=== PATIENT | male | born 1965 | race Caucasian/White ===

== ENCOUNTER 2018-11-23 07:32 | Emergency (ER) | payer BC ==
--- OUTSIDE RECORDS SUMMARY | 2018-11-23 07:39 | XMS REPORT | Continuity of Care Document ---
:1965 External Reference #:[id number] Author Name Freya Cha Care Team Providers Name Role Phone Glory Veloz MD Primary Care Physician Unavailable Payers Date Identification Numbers Payment Provider Subscriber Policy Number: [id number] [facility] Ppo Nicolas Valentin Group Number: [id number] 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 Tobacco Use Start: Unknown Never Smoked Cigarettes Smoking Status Reviewed: 11/05/18 Never Smoked Cigarettes ETOH Use Occasionally consumes 2 glasses wine per alcohol week Tobacco Use Start: Unknown Patient has never smoked Recreational Drug Use Denies Drug Use Exercise Type/Frequency Exercises regularly Allergies, Adverse Reactions, Alerts Date Description Reaction Status Severity Comments 10/10/2010 Penicillins Urticaria Active Moderate Medications Medication Date Status Form Strength Qnty SIG Indications Ordering Provider Zyrtec / Active Tablets 10mg 30tabs 1 tab qd Unknown 0000 Dispers Sertraline HCL / Active Tablets 50mg 90tabs Take 1 Glory 0000 Tablet Cammy Veloz M.D. Tobramycin 03/11/ Hx Solution 0.3% 5ml 1 drop in H10.89 Azalea 2016 - each eye Varn, N.P. 08/02/ every 2016 4hours x 7 days Azithromycin 01/27/ Hx Tablets 250mg 6tabs 2 tabs by J06.9 Page 2016 - mouth Lizet, POT RUNNER 02/01/ every day 2016 x1 day, 1 tab by mouth every day x 4 days Advair HFA 01/27/ Hx Aerosol 115-21mcg/ 8gm 2 puffs J06.9 Page 2016 - Act twice Lizet, POT RUNNER 02/10/ daily for 2015 two week. Androgel 12/06/ Hx Gel 20.25mg/1. 37.500 apply1.25 257.2 Yaima 2013 - 25GM gm gm to area Sarah, 02/23/ (1.62%) sparingly M.D., FACP 2013 every day Ferrex 150 02/04/ Hx Capsules 50-100mg 180cap Take 1 D64.9 [facility] Forte Plus 2010 - s Capsule Cotton, 03/11/ Once A Day M.D. 2016 Requip 01/28/ Hx Tablets 0.25mg 60tabs 1 tablet 780.52 Yaima 2010 - at night Sarah, 08/31/ for a M.D., FACP 2012 week, then take 2 tablets at bedtime. Temazepam 10/10/ Hx Capsules 15mg 20caps 1 capsule Yaima 2010 - every Sarah, 12/06/ night as M.D., FACP 2013 needed for sleep Zolpidem / Hx Tablets 10mg 20tabs 1 tablet Yaima Tartrate 0000 - at bedtime Sarah, 12/06/ as needed M.D., FACP 2013 Immunizations CPT Code Status Date Vaccine Lot # [id number] Given 08/03/2017 Influenza Virus Vaccine, Quadrivalent, Split, [id number] Preservative Free 98078 Given 07/31/2016 Influ Virus Vaccine, Quadrivalent, Split Virus, [place] [id number] [address] Given 07/26/2015 Tdap - Tetanus/Diptheria/Acellular Pertussis [id number] 77836 Given 07/26/2015 Influenza Virus Vaccine, Quadrivalent, Split, [id number] Preservative Free 55774 Given 10/10/2010 Influenza Virus 3Yrs & Over 02502 Given 11/28/2009 Influenza Virus Vaccine, Pandemic Formulation 22156 Given 11/28/2009 Administration Swine Flu Shot Vital Signs Date Vital Result Comment 11/05/2018 9:08am Height 75.5 inches 6'3.50" Weight 276.00 lb Heart Rate 76 /min BP Systolic Sitting 134 mmHg BP Diastolic Sitting 90 mmHg Respiratory Rate 18 /min O2 % BldC Oximetry 97 % on Ra BMI (Body Mass Index) 34.0 kg/m2 Neck Circumference in inches 16.75 08/09/2018 9:22am Height 75.5 inches 6'3.50" Weight 272.00 lb Heart Rate 80 /min BP Systolic Sitting 122 mmHg BP Diastolic Sitting 75 mmHg Body Temperature 96.9 F O2 % BldC Oximetry 97 % BMI (Body Mass Index) 33.5 kg/m2 08/03/2017 9:09am Height 75.75 inches 6'3.75" Weight 266.00 lb Heart Rate 64 /min BP Systolic 138 mmHg BP Diastolic 70 mmHg Body Temperature 96.7 F O2 % BldC Oximetry 95 % BMI (Body Mass Index) 32.6 kg/m2 03/11/2017 2:13pm Weight 265.50 lb Heart Rate 73 /min BP Systolic 130 mmHg BP Diastolic 78 mmHg Body Temperature 97.7 F O2 % BldC Oximetry 98 % 07/31/2016 10:35am Height 75 inches 6'3" Weight 270.00 lb Heart Rate 62 /min BP Systolic Sitting 128 mmHg BP Diastolic Sitting 78 mmHg Respiratory Rate 15 /min Body Temperature 97.3 F O2 % BldC Oximetry 98 % BMI (Body Mass Index) 33.7 kg/m2 01/28/2016 2:38pm Heart Rate 81 /min BP Systolic Sitting 129 mmHg BP Diastolic Sitting 88 mmHg Body Temperature 97.2 F O2 % BldC Oximetry 98 % 07/26/2015 10:15am Height 76.5 inches 6'4.50" Weight 266.00 lb Heart Rate 52 /min BP Systolic Sitting 122 mmHg BP Diastolic Sitting 80 mmHg Respiratory Rate 14 /min Body Temperature 98.0 F O2 % BldC Oximetry 98 % BMI (Body Mass Index) 32.0 kg/m2 01/16/2015 11:43am Weight 262.50 lb Heart Rate 68 /min BP Systolic Sitting 120 mmHg BP Diastolic Sitting 68 mmHg Body Temperature 95.9 F O2 % BldC Oximetry 95 % 02/23/2014 9:40am Weight 261.00 lb Heart Rate 60 /min BP Systolic Sitting 110 mmHg BP Diastolic Sitting 70 mmHg 12/06/2013 2:35pm Height 63.75 inches 5'3.75" Weight 255.25 lb Heart Rate 56 /min BP Systolic Sitting 108 mmHg BP Diastolic Sitting 64 mmHg Body Temperature 97.3 F BMI (Body Mass Index) 44.2 kg/m2 08/31/2013 2:04pm Weight 262.75 lb Heart Rate 72 /min BP Systolic Sitting 124 mmHg BP Diastolic Sitting 70 mmHg 03/20/2011 10:21am Height 75 inches 6'3" Weight 245.00 lb Heart Rate 82 /min BP Systolic Sitting 124 mmHg BP Diastolic Sitting 72 mmHg BMI (Body Mass Index) 30.6 kg/m2 02/04/2011 8:56am Height 75 inches 6'3" Weight 240.00 lb Heart Rate 78 /min BP Systolic Sitting 126 mmHg BP Diastolic Sitting 70 mmHg BMI (Body Mass Index) 30.0 kg/m2 01/28/2011 1:28pm Weight 242.00 lb Heart Rate 64 /min BP Systolic 118 mmHg BP Diastolic 66 mmHg 10/10/2010 9:00am Weight 253.00 lb Heart Rate 62 /min BP Systolic 110 mmHg BP Diastolic 70 mmHg Results Test Date Facility Test Result H/L Range Note Iron & Iron Binding 07/30/2018 [facility] Iron 76 g/dL N 50- 212 [address] [place] [address] [phone] Unsaturated Iron Binding < 362 g/dL Total Iron Binding Capacity 377 g/dL N 250-450 Transferrin 269 mg/dL N 203-362 % Iron Saturation 20 % N 15-55 Lipid Profile 07/30/2018 [facility] Triglycerides 132 mg/dL 1 (Trig/Chol/HDL) [address] [place] [address] [phone] Cholesterol 200 mg/dL 2 HDL Cholesterol 41.6 mg/dL 3 LDL Cholesterol 132 mg/dL 4 CBC Auto Diff 07/30/2018 [facility] White Blood 5.0 10^3/uL N 3.5-10.[address] [place] [address] [phone] Red Blood Count 5.25 10^6/uL N 4.00-5.40 Hemoglobin 15.1 g/dL N 14.0-18.0 Hematocrit 43 % N 42-52 Mean Corpuscular Volume 82 fL N 80-94 Mean Corpuscular Hemoglobin 29 pg N 27-31 Mean Corpuscular HGB Conc 35 g/dL N 31-36 Red Cell Distribution Width 14 % N 10.5-15 Platelet Count 236 10^3/uL N 150-450 Mean Platelet Volume 8.8 um3 N 7.4-10.4 Abs Neutrophils 3.3 10^3/uL N 1.5-7.7 Abs Lymphocytes 1.1 10^3/uL N 1.0-4.8 Abs Monocytes 0.4 10^3/uL N 0-0.8 Abs Eosinophils 0.2 10^3/uL N 0-0.6 Abs Basophils 0.1 10^3/uL N 0-0.2 Abs Nucleated RBC 0 10^3/uL Granulocyte % 65.9 % N 38-83 Lymphocyte % 21.4 % Low 25-47 Monocyte % 8.2 % High 0-7 Eosinophil % 3.1 % N 0-6 Basophil % 1.4 % N 0-2 Nucleated Red Blood Cells % 0.1 Comp Metabolic Panel 07/30/2018 [facility] Sodium 141 mmol/L N 135-[address] [place] [address] [phone] Potassium 4.7 mmol/L N 3.5-5.0 Chloride 108 mmol/L N 101-111 Co2 Carbon Dioxide 27 mmol/L N 22-32 Anion Gap 6 mmol/L N 2-11 Glucose 106 mg/dL High 70-100 Blood Urea Nitrogen 19 mg/dL N 6-24 Creatinine 1.01 mg/dL N 0.67-1.17 BUN/Creatinine Ratio 18.8 N 8-20 Calcium 9.7 mg/dL N 8.6-10.3 Total Protein 6.8 g/dL N 6.4-8.9 Albumin 4.5 g/dL N 3.2-5.2 Globulin 2.3 g/dL N 2-4 Albumin/Globulin Ratio 2.0 N 1-3 Total Bilirubin 1.10 mg/dL High 0.2-1.0 Alkaline Phosphatase 88 U/L N 34-104 Alt 30 U/L N 7-52 Ast 21 U/L N 13-39 Egfr Non- 77.9 >60 Egfr 94.2 >60 5 Lipid Profile 07/28/2017 [facility] Triglycerides 143 mg/dL N 6 (Trig/Chol/HDL) [address] [place] [address] [phone] Cholesterol 193 mg/dL N 7 HDL Cholesterol 38.3 mg/dL N 8 LDL Cholesterol 126 mg/dL N 9 Comp Metabolic Panel 07/28/2017 [facility] Sodium 138 mmol/L N 133-[address] [place] [address] [phone] Potassium 3.9 mmol/L N 3.5-5.0 Chloride 105 mmol/L N 101-111 Co2 Carbon Dioxide 26 mmol/L N 22-32 Anion Gap 7 mmol/L N 2-11 Glucose 93 mg/dL N 70-100 Blood Urea Nitrogen 13 mg/dL N 6-24 Creatinine 0.91 mg/dL N 0.67-1.17 BUN/Creatinine Ratio 14.3 N 8-20 Calcium 9.4 mg/dL N 8.6-10.3 Total Protein 6.5 g/dL N 6.4-8.9 Albumin 4.1 g/dL N 3.2-5.2 Globulin 2.4 g/dL N 2-4 Albumin/Globulin Ratio 1.7 N 1-3 Total Bilirubin 1.60 mg/dL High 0.2-1.0 Alkaline Phosphatase 79 U/L N 34-104 Alt 26 U/L N 7-52 Ast 22 U/L N 13-39 Egfr Non- 88.2 N >60 Egfr 113.4 N >60 10 CBC Auto Diff 07/28/2017 [facility] White Blood 5.2 10^3/uL N 3.5-10.[address] [place] [address] [phone] Red Blood Count 5.16 10^6/uL N 4.0-5.4 Hemoglobin 14.9 g/dL N 14.0-18.0 Hematocrit 43 % N 42-52 Mean Corpuscular Volume 84 fL N 80-94 Mean Corpuscular Hemoglobin 29 pg N 27-31 Mean Corpuscular HGB Conc 35 g/dL N 31-36 Red Cell Distribution Width 13 % N 10.5-15 Platelet Count 226 10^3/uL N 150-450 Mean Platelet Volume 9 um3 N 7.4-10.4 Abs Neutrophils 3.4 10^3/uL N 1.5-7.7 Abs Lymphocytes 1.3 10^3/uL N 1.0-4.8 Abs Monocytes 0.4 10^3/uL N 0-0.8 Abs Eosinophils 0.1 10^3/uL N 0-0.6 Abs Basophils 0.1 10^3/uL N 0-0.2 Abs Nucleated RBC 0 10^3/uL N Granulocyte % 63.9 % N 38-83 Lymphocyte % 24.2 % Low 25-47 Monocyte % 7.7 % N 1-9 Eosinophil % 2.5 % N 0-6 Basophil % 1.7 % N 0-2 Nucleated Red Blood Cells % 0 N Laboratory test 07/28/2017 [facility] Ferritin 53.5 ng/mL N 24 -336 [address] [place] [address] [phone] Iron & Iron Binding 07/28/2017 [facility] Iron 111 g/dL N 50 -212 [address] [place] [address] [phone] Unsaturated Iron Binding 242 g/dL N Total Iron Binding Capacity 353 g/dL N 250-450 % Iron Saturation 31 % N 15-55 Iron & Iron Binding 07/04/2016 [facility] Iron 54 g/dL N 50- 212 [address] [place] [address] [phone] Unsaturated Iron Binding 317 g/dL N Total Iron Binding Capacity 371 g/dL N 250-450 % Iron Saturation 15 % N 15-55 Laboratory test 07/04/2016 [facility] Ferritin 36.6 ng/mL N 24 -336 11 [address] [place] [address] [phone] Lipid Profile 07/04/2016 [facility] Triglycerides 107 mg/dL N 12 (Trig/Chol/HDL) [address] [place] [address] [phone] Cholesterol 182 mg/dL N 13 HDL Cholesterol 37.4 mg/dL N 14 LDL Cholesterol 123 mg/dL N 15 Laboratory test 07/04/2016 [facility] Glucose 103 mg/dL High 70-100 16 [address] [place] [address] [phone] Lipid Profile 07/24/2015 [facility] Triglycerides 136 mg/dL N 17 (Trig/Chol/HDL) [address] [place] [address] [phone] Cholesterol 180 mg/dL N 18 HDL Cholesterol 35.2 mg/dL N 19 LDL Cholesterol 118 mg/dL N 20 Iron & Iron Binding 07/24/2015 [facility] Iron 76 g/dL N 50- 212 [address] [place] [address] [phone] Unsaturated Iron Binding 289 g/dL N Total Iron Binding Capacity 365 g/dL N 250-450 % Iron Saturation 21 % N 15-55 Laboratory test 07/24/2015 [facility] Ferritin 33.7 ng/mL N 24 -336 [address] [place] [address] [phone] CBC Auto Diff 07/24/2015 [facility] White Blood 5.1 10^3/uL N 4.8-10.8 [address] [facility] [place] [address] [phone] Red Blood Count 5.23 10^6/uL N 4.0-5.4 Hemoglobin 15.1 g/dL N 14.0-18.0 Hematocrit 44 % N 42-52 Mean Corpuscular Volume 85 fL N 80-94 Mean Corpuscular Hemoglobin 29 pg N 27-31 Mean Corpuscular HGB Conc 34 g/dL N 31-36 Red Cell Distribution Width 13 % N 10.5-15 Platelet Count 238 10^3/uL N 150-450 Mean Platelet Volume 9 um3 N 7.4-10.4 Abs Neutrophils 3.5 10^3/uL N 1.5-7.7 Abs Lymphocytes 1.1 10^3/uL N 1.0-4.8 Abs Monocytes 0.3 10^3/uL N 0-0.8 Abs Eosinophils 0.2 10^3/uL N 0-0.6 Abs Basophils 0.1 10^3/uL N 0-0.2 Abs Nucleated RBC 0.02 10^3/uL N Granulocyte % 67.6 % N 38-83 Lymphocyte % 21.9 % Low 25-47 Monocyte % 6.0 % N 1-9 Eosinophil % 3.1 % N 0-6 Basophil % 1.4 % N 0-2 Nucleated Red Blood Cells % 0.4 N Comp Metabolic Panel 07/24/2015 [facility] Sodium 138 mmol/L N 133-[address] [place] [address] [phone] Potassium 4.2 mmol/L N 3.5-5.0 Chloride 105 mmol/L N 101-111 Co2 Carbon Dioxide 27 mmol/L N 22-32 Anion Gap 6 mmol/L N 2-11 Glucose 102 mg/dL High 70-100 Blood Urea Nitrogen 19 mg/dL N 6-24 Creatinine 0.94 mg/dL N 0.67-1.17 BUN/Creatinine Ratio 20.2 High 8-20 Calcium 9.5 mg/dL N 8.6-10.3 Total Protein 6.7 g/dL N 6.4-8.9 Albumin 4.3 g/dL N 3.2-5.2 Globulin 2.4 g/dL N 2-4 Albumin/Globulin Ratio 1.8 N 1-3 Total Bilirubin 0.80 mg/dL N 0.2-1.0 Alkaline Phosphatase 79 U/L N 34-104 Alt 22 U/L N 7-52 Ast 18 U/L N 13-39 Egfr Non- 85.7 N >60 Egfr 110.2 N >60 21 Laboratory test 10/18/2013 [facility] Ferritin 16 ng/mL Low 24 -[address] [place], [place] [id number] [phone] Testosterone Free 10/18/2013 [facility] Free 11 ng/dL 9-30 22 & Total [address] [place] [address] ng/dl [phone] Testosterone 260 ng/dL 240-950 23 CBC Auto Diff 10/18/2013 [facility] White Blood 4.9 10^3/uL 4.8-10.[address] [place] [address] [phone] Red Blood Count 5.05 10^6/uL 4.0-5.4 Hemoglobin 14.3 g/dL 14.0-18.0 Hematocrit 41 % Low 42-52 Mean Corpuscular Volume 82 fL 80-94 Mean Corpuscular Hemoglobin 28 pg 27-31 Mean Corpuscular HGB Conc 35 g/dL 31-36 Red Cell Distribution Width 14 % 10.5-15 Platelet Count 237 10^3/uL 150-450 Mean Platelet Volume 9 um3 7.4-10.4 Abs Neutrophils 3.1 10^3/uL 1.5-7.7 Abs Lymphocytes 1.2 10^3/uL 1.0-4.8 Abs Monocytes 0.4 10^3/uL 0-0.8 Abs Eosinophils 0.1 10^3/uL 0-0.6 Abs Basophils 0 10^3/uL 0-0.2 Abs Nucleated RBC 0 10^3/uL Granulocyte % 63.6 % 38-83 Lymphocyte % 25.1 % 25-47 Monocyte % 8.0 % 1-9 Eosinophil % 2.4 % 0-6 Basophil % 0.9 % 0-2 Nucleated Red Blood Cells % 0.1 Laboratory test 03/17/2011 [facility] Ferritin 33 NG/ML 24- [address] [place] [address] [phone] CBC With Manual 03/17/2011 [facility] White Blood 4.9 CUMM 4.8-10.[address] [place] [address] [phone] Red Cell Count 5.27 CUMM 4.6-6.2 Hemoglobin 12.2 g/dL Low 14.0-18.0 Hematocrit 38 % Low 42-52 Mean Corpuscular Volume 72 um3 Low 80-94 Mean Corpuscular Hemoglob 23 pg Low 27-31 Mean Corpuscular HGB Cone 32 g/dL 32-36 Redcell Distribution WDTH 27 % High 10.5-15 Platelet Count 215 CUMM 150-450 Mean Platelet Volume 9.9 um3 7.4-10.4 Polysegmented Neutrophil 63 % 38-83 Lymphocyte 20 % Low 25-47 Monocyte 14 % High 0-13 Eosinophil 2 % 0-6 Basophil 1 % 0-2 Absolute Neutrophil Count 3.0 RBC Morphology BOILER COVERER Anisocytosis 1+ Poikilocytosis SLIGHT Microcytosis 1+ Ovalocytes 1+ 1 Desirable: <150 Borderline High: 150-199 High: 200-499 Very High: >500 2 Desirable: <200 Borderline High: 200-239 High: >239 3 Low: <40 Desirable: 40-60 High: >60 4 Desirable: <100 Near Optimal: 100-129 Borderline High: 130-159 High: 160-189 Very High: >189 5 Because ethnic data is not always readily available, this report includes an eGFR for both -Americans and non- Americans. The National Kidney Disease Education Program (NKDEP) does not endorse the use of the MDRD equation for patients that are not between the ages of 18 and 70, are , have extremes of body size, muscle mass, or nutritional status, or are non- or non-. According to the National Kidney Foundation, irrespective of diagnosis, the stage of the disease is based on the level of kidney function: Stage Description GFR(mL/min/1.73 m(2)) 1 Kidney damage with normal or decreased GFR 90 2 Kidney damage with mild decrease in GFR 60-89 3 Moderate decrease in GFR 30-59 4 Severe decrease in GFR 15-29 5 Kidney failure <15 (or dialysis) 6 Desirable: <150 Borderline High: 150-199 High: 200-499 Very High: >500 7 Desirable: <200 Borderline High: 200-239 High: >239 8 Low: <40 Desirable: 40-60 High: >60 9 Desirable: <100 Near Optimal: 100-129 Borderline High: 130-159 High: 160-189 Very High: >189 10 Because ethnic data is not always readily available, this report includes an eGFR for both -Americans and non- Americans. The National Kidney Disease Education Program (NKDEP) does not endorse the use of the MDRD equation for patients that are not between the ages of 18 and 70, are , have extremes of body size, muscle mass, or nutritional status, or are non- or non-. According to the National Kidney Foundation, irrespective of diagnosis, the stage of the disease is based on the level of kidney function: Stage Description GFR(mL/min/1.73 m(2)) 1 Kidney damage with normal or decreased GFR 90 2 Kidney damage with mild decrease in GFR 60-89 3 Moderate decrease in GFR 30-59 4 Severe decrease in GFR 15-29 5 Kidney failure <15 (or dialysis) 11 VERBAL ORDER taken from DR VELOZ BY [email or web address] ON 07/06/16 at 1712 for test(s): GLUCOSE,LIPID 12 Desirable <150 Borderline high 150-199 High 200-499 Very High >500 13 Desirable <200 Borderline high 200-239 High >239 14 Low <40 Desirable: 40-60 High: >60 15 Desirable: <100 mg/dL Near Optimal: 100-129 mg/dL Borderline High: 130-159 mg/dL High: 160-189 mg/dL Very High: >189 mg/dL 16 VERBAL ORDER taken from DR VELOZ BY [id number] ON 07/06/16 at 1712 for test(s): GLUCOSE,LIPID 17 Desirable <150 Borderline high 150-199 High 200-499 Very High >500 18 Desirable <200 Borderline high 200-239 High >239 19 Low <40 Desirable: 40-60 High: >60 20 Desirable: <100 mg/dL Near Optimal: 100-129 mg/dL Borderline High: 130-159 mg/dL High: 160-189 mg/dL Very High: >189 mg/dL 21 Because ethnic data is not always readily available, this report includes an eGFR for both -Americans and non- Americans. The National Kidney Disease Education Program (NKDEP) does not endorse the use of the MDRD equation for patients that are not between the ages of 18 and 70, are , have extremes of body size, muscle mass, or nutritional status, or are non- or non-. According to the National Kidney Foundation, irrespective of diagnosis, the stage of the disease is based on the level of kidney function: Stage Description GFR(mL/min/1.73 m(2)) 1 Kidney damage with normal or decreased GFR 90 2 Kidney damage with mild decrease in GFR 60-89 3 Moderate decrease in GFR 30-59 4 Severe decrease in GFR 15-29 5 Kidney failure <15 (or dialysis) 22 Testing performed by [facility]. 23 Testing performed by Liquid Chromatography-Tandem Mass Spectrometry (LC-MS/MS). Test Performed by: [facility] [address] [address] Livestock Producer: Costa Samuel III, M.D. Procedures Date Code Description Status 12/06/2013 93066 EKG Tracing & Interpretation Completed 01/03/2013 [id number] Colonoscopy Completed 09/09/2012 [id number] Colonoscopy Completed Encounters Type Date Location Provider Dx Diagnosis Office Visit 08/09/2018 [facility] Glory Veloz, Z00.00 Encntr for 9:20a Medicine - M.D. general adult [facility] medical exam w/o abnormal findings R06.83 Snoring Z68.33 Body mass index (BMI) 33.0-33.9, adult Office Visit 08/03/2017 9:20a [facility] Internal Glory Z00.00 Encntr for Kali Veloz M.D. general adult [place] medical exam w/o abnormal findings E78.5 Hyperlipidemia, unspecified Z23 Encounter for immunization Z12.11 Encounter for screening for malignant neoplasm of colon D50.9 Iron deficiency anemia, unspecified Office Visit 03/11/2017 [facility] Internal Azalea Florez, H10.89 Other conjunctivitis 2:00p Medicine Mario N.PMacrina [place] Office Visit 07/31/2016 [facility] Internal Glory Z00.00 Encntr for general 10:40a Kali Veloz M.D. adult medical exam [place] w/o abnormal findings Z23 Encounter for immunization D50.9 Iron deficiency anemia, unspecified Office Visit 01/28/2016 2:40p [facility] Internal Kevin Hinds NP J06.9 Acute upper Medicine - respiratory [place] infection, unspecified Office Visit 07/26/2015 10:20a [facility] Internal Glory Z00.00 Encntr ryan Veloz M.D. general adult [place] medical exam w/o abnormal findings D50.9 Iron deficiency anemia, unspecified Z23 Encounter for immunization Office Visit 01/16/2015 11:40a [facility] Internal Kim Leos, 462 Pharyngitis Acute Kali Martin M.D. [place] 461.8 Sinusitis Acute Other 461.9 Sinusitis Acute Unspec Office Visit 02/23/2014 9:40a [facility] Internal Glory 455.5 Hemorrhoids Kali Veloz M.D. External W/ Other [place] Complications 300.00 Anxiety State Unspec Office Visit 12/06/2013 2:20p [facility] Internal Yaima Smith, V70.0 Examination Medicine - [place], [facility] Routine AT [facility] 780.79 Malaise And Fatigue Other 564.1 Irritable Bowel Syndrome 455.3 Hemorrhoids External W/O Complication 257.2 Testicular Hypofunction Other 272.0 Hypercholesterolemia Pure Office Visit 08/31/2013 2:00p [facility] Internal Yaima Smith, 285.9 Anemia Unspec Medicine - M.D., FACP [place] 300.00 Anxiety State Unspec Office Visit 03/20/2011 10:20a DO Not Use Yaima Sarah, 285.9 Anemia Unspec [facility] Franklin.D., FACP Office Visit 02/04/2011 9:00a DO Not Use Yaima Sarah, 285.9 Anemia Unspec [facility] Franklin.D., FACP Office Visit 01/28/2011 1:40p DO Not Use Yaima Sarah, 780.52 Insomnia Russ-Edwina Delong, FACP Unspecified Office Visit 10/10/2010 9:00a DO Not Use Yaima Sarah, 780.52 Insomnia [facility] Franklin.DMacrina, FACP Unspecified V04.81 Need For Prophylactic Vaccination & Inoculation/Influenza Office Visit 01/01/2010 2:00p DO Not Use Yaima Sarah, 780.79 Malaise And [facility] Reid.Rebecca, FACP Fatigue Other 300.00 Anxiety State Unspec Office Visit 11/28/2009 2:00p DO Not Use Yaima Sarah, 465.9 URI Upper Russ-Edwina Reid.Surekha., FACP Respiratory Infections Acute Unspec Sites 780.52 Insomnia Unspecified 300.00 Anxiety State Unspec V04.81 Need For Prophylactic Vaccination & Inoculation/Influenza Office Visit 03/02/2007 12:15p DO Not Use Yaima Sarah, 780.52 Insomnia Dany Delong, FACP Unspecified 300.00 Anxiety State Unspec Office Visit 11/24/2006 10:00a DO Not Use Yaima Sarah, 780.52 Insomnia Dany Delong, FACP Unspecified Office Visit 10/23/2006 2:30p DO Not Use Yaima Sarah, 780.52 Insomnia Dany Delong, FACP Unspecified Plan of Treatment Future Appointment(s):11/18/2018 2:30 pm - Maryjo Tucker DNP, RN, ESTHETICIAN/SPA COORDINATOR- at [facility]08/12/2019 1:20 pm - Glory Veloz M.D. at [facility] Internal Medicine - Gdhy[place]zi63/08/2019 - Genie Zacarias, MDR06.83 SnoringFollow up:2 haxgdR91.83 Other fatigue
[2018-11-23 07:49] VITALS: BP 133/87
[2018-11-23 08:02] LABS: Influenza A Molecular POSITIVE (Negative)
--- NOTE | 2018-11-23 08:24 | UC ---
General HPI - HPI Summary HPI Summary: Here concerned for flu - thinks its a standard cold but has cancer and just completed chemo and is undergoing radiation. About 1.5 days ago began with sore throat, cough, body aches and low grade temp. Has used an inhaler in the past, no longer has one. Has been using dayquil and nyquil and resting most of the day. Tolerating PO. No N/V/D. No sick contacts. Did get a flu shot this year. Meds: reviewed - History of Current Complaint Chief Complaint: UCRespiratory Stated Complaint: RESP ISSUE Time Seen by Provider: 11/23/18 07:48 Pain Intensity: 0 - Allergy/Home Medications Allergies/Adverse Reactions: Allergies Allergy/AdvReac Type Severity Reaction Status Date / Time Penicillins Allergy Hives Verified 11/23/18 08:01 Home Medications: Home Medications Phenol/Glycerin [Chloraseptic Max Sore Thr] 1 spr MT SEE INSTRUCTIONS 11/23/18 [ History Confirmed 11/23/18] PMH/Surg Hx/FS Hx/Imm Hx Previously Healthy: Yes - Surgical History Surgical History: Yes Surgery Procedure, Year, and Place: L inguinal hernia; moles removed; tonsils; wisdom teeth - Family History Known Family History: Positive: Respiratory Disease - copd - smokers Negative: Cardiac Disease - Social History Alcohol Use: Occasionally Substance Use Type: None Smoking Status (MU): Never Smoked Tobacco - Immunization History Most Recent Influenza Vaccination: jun 2015 Review of Systems All Other Systems Reviewed And Are Negative: Yes Constitutional: Positive: Fever, Chills ENT: Positive: Sore Throat, Nasal Discharge Respiratory: Positive: Cough Cardiovascular: Positive: Negative Genitourinary: Positive: Negative Motor: Positive: Negative Physical Exam Triage Information Reviewed: Yes Appearance: Well-Appearing Vital Signs: Initial Vital Signs Temp 99.1 F 11/23/18 07:43 Pulse 86 11/23/18 07:43 Resp 18 11/23/18 07:43 BP 133/87 11/23/18 07:43 Pulse Ox 95 11/23/18 07:43 Vital Signs Reviewed: Yes Eyes: Positive: Conjunctiva Clear ENT: Positive: Pharyngeal erythema, Nasal congestion, Other - b/l clear fluid TM Neck: Positive: Supple, Enlarged Nodes @ - anterior cervical chain Respiratory: Positive: Lungs clear, Normal breath sounds, Other: - coarse/ wheezing cough Cardiovascular: Positive: RRR, No Murmur Course/Dx - Course Course Of Treatment: This is a 53 yr old with flu like symptoms. Assessment. Nontoxic appearing. Flu A: positive. Plan. Start Tamiflu as prescribed. Continue supportive care. Recommend albuterol inhaler with chamber as needed for cough/wheeze. Continue to encourage fluids. If symptoms persist or worsen over the next 2-3 days recommend calling primary care physician for further evaluation. Tamiflu prophylaxis provided for Linda faxed to [facility]. Angelica : 69. Chayito : 10/06[birth year]08 - 70 lbs - able to swallow pills. Recommend prophylaxis for household members due to immunocompromised state of patient's . - Diagnoses Provider Diagnosis: Influenza A Discharge - Sign-Out/Discharge Documenting (check all that apply): Patient Departure All imaging exams completed and their final reports reviewed: No Studies - Discharge Plan Condition: Good Disposition: HOME Prescriptions: Albuterol HFA INHALER* [Ventolin HFA Inhaler*] 2 puff INH Q4H PRN #1 mdi PRN Reason: Cough Oseltamivir CAP* [Tamiflu CAP*] 75 mg PO BID #10 cap Spacer/Holding Chamber (NF) [Easivent CHAMBER (NF)] 1 applic INH Q4HR PRN #1 device PRN Reason: Cough Patient Education Materials: Influenza (ED) Referrals: Glory Veloz MD [Primary Care Provider] - Additional Instructions: Start Tamiflu as prescribed Continue supportive care Recommend albuterol inhaler with chamber as needed for cough/wheeze Continue to encourage fluids If symptoms persist or worsen over the next 2-3 days recommend calling primary care physician for further evaluation Tamiflu prophylaxis provided for Linda faxed to [facility] - Billing Disposition and Condition Condition: GOOD Disposition: Home
== END 2018-11-23 08:17 | disposition home or self-care (01) ==
LOC: UCEAST 07:32
DX: J10.1 Influenza due to other identified influenza virus with other respiratory manifestations (principal); Z88.0 Allergy status to penicillin
CPT/HCPCS: 87651; 99202; G0463